=== PATIENT | male | born 1965 | race Caucasian/White ===

== ENCOUNTER 2024-04-29 09:07 | Day surgery (SDC) | payer BC ==
[~2024-04-29 09:07] MED LIST: Sodium Chloride 0.9% 10 ML Syringe FLUSH PRN; Sodium Chloride 0.9% 10 ML Syringe FLUSH SCH
[2024-04-29] MEDS ORDERED: Lactated Ringers 1,000 ML IV ONE (09:08)
[2024-04-29] MEDS ORDERED: Propofol 200 MG/20 ML SDV ONE ×4 (10:06→11:45)
[2024-04-29] MEDS ORDERED: fentaNYL 100 MCG/2 ML SDV ONE (10:07)
[2024-04-29] MEDS ORDERED: Lidocaine 1% 4 ML ONE (10:07)
[2024-04-29] MEDS ORDERED: Midazolam 1 MG/ML 2 ML SDV ONE (10:07)
[2024-04-29] MEDS: Lactated Ringers 1,000 ML IV SCH (10:15)
[2024-04-29 12:37] VITALS: BP 114/67; PULSE 72
== END 2024-04-29 12:50 | disposition home or self-care (01) ==
LOC: JD.SDS 09:07
PROVIDERS: ATTEND Surgery
DX: Z12.11 Encounter for screening for malignant neoplasm of colon (principal); K64.8 Other hemorrhoids; J44.9 Chronic obstructive pulmonary disease, unspecified; G47.30 Sleep apnea, unspecified; Z87.891 Personal history of nicotine dependence; Z79.899 Other long term (current) drug therapy
CPT/HCPCS: 45380; J2250; J2704; J3010; J7120; 00812; J3490